=== PATIENT | male | born 1965 | race Caucasian/White ===

== ENCOUNTER → 2018-04-01 | Outpatient (CLI) | payer MEDICARE, MEDICAID ==
[~2018-04-01] MED LIST: ALBU18HF INH; AMIT150T PO; AMLO10TA6 PO; ASPI-496 PO; CARV-39 PO; CLON1TAB PO; FURO20TA3 PO; GABA300C10 PO; GABA600T2 PO; HYDR25TA6 PO; HYDR50TA13 PO; INSU100I13 SC; INSU100V12 SQ; LAMO100T5 PO; LAMO100T63 PO; LISI-467 PO; MINO2.5T PO; MIRT15TA PO; NIAC500T10 PO; NITR0.4T28 SL; OLAN10TA3 PO; OXYC-302 PO; QUET400T PO; SITA25TA PO; TEMA15CA6 PO; VALS320T2 PO; ZOLP10TA5 PO
[2018-04-01 11:42] LABS: BASOPHILS # (AUTO) 0.04 x10^3/uL (0-0.1); BASOPHILS % (AUTO) 1 % (0-1); EOSINOPHILS # (AUTO) 0.19 x10^3/uL (0-0.4); EOSINOPHILS % (AUTO) 3 % (1-7); LYMPHOCYTES # (AUTO) 1.15 x10^3/uL (1-3.4); LYMPHOCYTES % (AUTO) 16 % (22-44); MD NO; MEAN CORPUSCULAR HEMOGLOBIN 32.4 pg (27.5-34.5); MEAN CORPUSCULAR HGB CONC 33.9 g/dL (33.2-36.2); MEAN CORPUSCULAR VOLUME 95.5 fL (81-97); MEAN PLATELET VOLUME 6.9 fL (7.4-10.4); MONOCYTES # (AUTO) 0.33 x10^3/uL (0.2-0.8); MONOCYTES % (AUTO) 5 % (2-9); NEUTROPHILS # (AUTO) 5.29 x10^3/uL (1.8-6.8); NEUTROPHILS % (AUTO) 76 % (42-75); PLATELET COUNT 466 x10^3/uL (130-400); RED BLOOD COUNT 4.18 x10^6/uL (4.38-5.82); RED CELL DISTRIBUTION WIDTH 15.5 % (9.4-14.8)
[2018-04-01 11:44] LABS: MICROSCOPIC AUTO
[2018-04-01 11:46] LABS: INTERNATIONAL NORMALIZED RATIO 0.96 (0.93-1.1); PROTHROMBIN TIME 9.9 Seconds (9.6-11.5)
[2018-04-01 11:48] LABS: CULTURE INDICATED? NO
[2018-04-01 11:49] LABS: ALBUMIN 3.8 g/dL (3.4-5.0); ANION GAP 5 mmol/L (5-15); CALCIUM 8.8 mg/dL (8.5-10.1); CHLORIDE 111 mmol/L (98-107)
[2018-04-01 11:52] LABS: ALANINE AMINOTRANSFERASE 37 U/L (12-78); ALKALINE PHOSPHATASE 117 U/L (45-117); BILIRUBIN,TOTAL 0.4 mg/dL (0.2-1.0); CREATININE 1.26 mg/dL (0.7-1.3); TOTAL PROTEIN 7.2 g/dL (6.4-8.2)
[2018-04-01 14:33] LABS: HEMOGLOBIN A1C 9.6 % (4.2-6.3)
== END | disposition home or self-care (01) ==
LOC: STAR 10:14
PROVIDERS: ATTEND Orthopaedic Surgery
DX: Z01.818 Encounter for other preprocedural examination (principal); M17.11 Unilateral primary osteoarthritis, right knee; M25.561 Pain in right knee; I51.7 Cardiomegaly; I49.8 Other specified cardiac arrhythmias
CPT/HCPCS: 36415; 80053; 81001; 83036; 85025; 85610; 85730; 87081; 87806; 93005; G0475

== ENCOUNTER 2018-04-08 06:43 | Observation (INO) | payer MEDICARE, MEDICAID ==
[~2018-04-08] VITALS: Ht 185.4 cm; Wt 116.4 kg
[2018-04-08] MEDS ORDERED: KETOROLAC 60 MG/2 ML ONE ×2 (07:04→07:27)
[2018-04-08] MEDS ORDERED: EPINEPHRINE 1 MG/ML, 1ML ONE ×2 (07:05→07:28)
[2018-04-08] MEDS ORDERED: ROPIvacaine/PF 0.2%, 20 ML ONE ×2 (07:05→07:28)
[2018-04-08] MEDS ORDERED: TRANEXAMIC ACID 100 MG/ML, 10ML ONE ×8 (07:05→07:28)
[2018-04-08] MEDS ORDERED: LACTATED RINGERS 1,000 ML IV SCH (07:08)
[2018-04-08] MEDS ORDERED: MIDAZOLAM 1 MG/ML, 2ML ONE (07:13)
[2018-04-08] MEDS ORDERED: FENTANYL PF 250 MCG/5ML ONE (07:13)
[2018-04-08] MEDS ORDERED: VANCOMYCIN 1,000 MG ONE (07:28)
[2018-04-08] MEDS ORDERED: ACETAMINOPHEN 500 MG TABLET PO ONE (07:30)
[2018-04-08] MEDS ORDERED: GABAPENTIN 300 MG CAPSULE PO ONE (07:30)
[2018-04-08] MEDS ORDERED: DEXTROSE 50%, 50ML SYRINGE ONE (07:49)
[2018-04-08 07:57] VITALS: BP 167/93
[2018-04-08] MEDS ORDERED: DEXTROSE 50%, 50ML SYRINGE IVPush ONE (08:00)
[2018-04-08] MEDS ORDERED: ONDANSETRON 4 MG TABLET PO PRN (08:30)
[2018-04-08] MEDS ORDERED: PROMETHAZINE 25 MG/ML, 1ML IM PRN (08:30)
[2018-04-08] MEDS ORDERED: PROMETHAZINE 12.5 MG SUPP PR PRN (08:30)
[2018-04-08] MEDS ORDERED: ONDANSETRON 2MG/ML, 2ML IV PRN ×2 (08:30→09:30)
[2018-04-08] MEDS ORDERED: ALUMINUM/MAG/SIMETHICONE 30 ML UDC PO PRN (08:30)
[2018-04-08] MEDS ORDERED: ACETAMINOPHEN 650 MG/20.3 ML UDC PO PRN (08:30)
[2018-04-08] MEDS ORDERED: TRANEXAMIC ACID 1,000 MG in SODIUM CHLORIDE 0.9% 100 ML IVPB ONE (08:30)
[2018-04-08] MEDS ORDERED: DIPHENHYDRAMINE 25 MG CAPSULE PO PRN (08:30)
[2018-04-08] MEDS ORDERED: SENNA/DOCUSATE TABLET PO PRN (08:30)
[2018-04-08] MEDS ORDERED: MAGNESIUM HYDROXIDE 8%, 30ML UDC PO PRN (08:30)
[2018-04-08] MEDS ORDERED: PHENYLEPHRINE 10 MG/ML ONE (09:00)
[2018-04-08] MEDS: DOCUSATE 100 MG CAPSULE PO SCH ×2 (09:00→21:00)
[2018-04-08] MEDS ORDERED: ONDANSETRON ODT 8 MG PO PRN (09:30)
[2018-04-08] MEDS ORDERED: MORPHINE SULFATE 4 MG/ML, 1ML IVPush PRN (09:30)
[2018-04-08] MEDS ORDERED: DIAZEPAM 5 MG/ML, 2ML IVPush PRN (09:30)
[2018-04-08] MEDS ORDERED: FENTANYL PF 100 MCG/2ML IV PRN (09:30)
[2018-04-08] MEDS ORDERED: HYDROmorphone 1 MG/ML, 1ML IV PRN (09:30)
[2018-04-08] MEDS ORDERED: ACETAMINOPHEN 325 MG TABLET PO PRN (09:30)
[2018-04-08] MEDS ORDERED: OXYcodone 5 MG/5 ML ORAL.SOL UDC PO PRN (09:30)
[2018-04-08] MEDS ORDERED: MEPERIDINE/PF 25MG/0.5ML IVPush PRN (09:30)
[2018-04-08] MEDS ORDERED: CEFAZOLIN 1,000 MG ONE (09:33)
[2018-04-08] MEDS ORDERED: PROPOFOL 10 MG/ML, 20ML ONE (09:33)
[2018-04-08] MEDS ORDERED: DEXAMETHASONE 4 MG/ML, 1ML ONE (09:33)
[2018-04-08] MEDS ORDERED: ONDANSETRON 2MG/ML, 2ML ONE (09:33)
[2018-04-08] MEDS: INSULIN REGULAR 100 UNITS/ML, 3ML VIAL SQ-INSULIN SCH ×3 (11:00→21:00)
[2018-04-08] MEDS ORDERED: OXYcodone 5 MG/5 ML ORAL.SOL UDC ONE (11:06)
[2018-04-08] MEDS ORDERED: HYDROmorphone 2 MG/ML, 1ML ONE ×3 (11:11→16:57)
[2018-04-08 12:20] VITALS: BP 136/83
[2018-04-08] MEDS: HYDROmorphone 1 MG/ML, 1ML IV PRN ×2 (13:53→17:02)
[2018-04-08] MEDS: NS + 20MEQ KCL 1,000 ML IV SCH ×2 (13:53→22:22)
[2018-04-08] MEDS ORDERED: TEMAZEPAM 15 MG CAPSULE PO PRN (14:30)
[2018-04-08] MEDS: TAMSULOSIN 0.4 MG CAP.ER.24H PO SCH (15:59)
[2018-04-08] MEDS: CEFAZOLIN PMX 1GM/50ML 50 ML IVPB SCH (16:10)
[2018-04-08] MEDS ORDERED: DEXTROSE 4 GM TAB.CHEW PO PRN (16:30)
[2018-04-08] MEDS ORDERED: DEXTROSE 50%, 50ML SYRINGE IVPush PRN (16:30)
[2018-04-08] MEDS ORDERED: GLUCAGON 1 MG IM PRN (16:30)
[2018-04-08] MEDS: ASPIRIN 81 MG TABLET EC PO SCH (17:03)
[2018-04-08] MEDS: OXYcodone IR 5MG TABLET PO PRN (20:05)
[2018-04-08 20:19] VITALS: BP 130/76
[2018-04-08] MEDS ORDERED: AMITRIPTYLINE 50 MG TABLET PO SCH (21:00)
[2018-04-08] MEDS ORDERED: MIRTAZAPINE 15 MG TABLET PO SCH (21:00)
[2018-04-08] MEDS: SODIUM CHLORIDE FLUSH 10ML SYR IVF SCH (21:00)
[2018-04-09] MEDS: CEFAZOLIN PMX 1GM/50ML 50 ML IVPB SCH (00:14)
[2018-04-09] MEDS: OXYcodone IR 5MG TABLET PO PRN ×2 (00:14→04:50)
[2018-04-09 00:30] VITALS: BP 124/78
[2018-04-09 04:03] VITALS: BP 142/81
[2018-04-09] MEDS: ASPIRIN 81 MG TABLET EC PO SCH (04:50)
[2018-04-09] MEDS: INSULIN REGULAR 100 UNITS/ML, 3ML VIAL SQ-INSULIN SCH (07:00)
[2018-04-09] MEDS ORDERED: D5%-0.45% NACL 500 ML IV ONE (07:00)
[2018-04-09 07:25] VITALS: BP 131/65
[2018-04-09] MEDS: NS + 20MEQ KCL 1,000 ML IV SCH (08:22)
[2018-04-09] MEDS: TAMSULOSIN 0.4 MG CAP.ER.24H PO SCH (08:34)
[2018-04-09] MEDS: DOCUSATE 100 MG CAPSULE PO SCH (08:34)
[2018-04-09] MEDS ORDERED: ASPI-515 PO (08:35)
[2018-04-09] MEDS: SODIUM CHLORIDE FLUSH 10ML SYR IVF SCH (08:35)
[2018-04-09] MEDS ORDERED: ONDA4TAB10 PO (08:36)
[2018-04-09] MEDS ORDERED: DOCU-131 PO (08:37)
[2018-04-09] MEDS ORDERED: CELE200C PO (08:38)
[2018-04-09] MEDS ORDERED: TRAM50TA2 PO (08:39)
[2018-04-09] MEDS ORDERED: OXYC5TAB3 PO (08:40)
[2018-04-09] MEDS ORDERED: LAMOTRIGINE 100 MG TABLET PO SCH (09:00)
[2018-04-09] MEDS ORDERED: OLANZAPINE 10 MG TABLET PO SCH (09:00)
[2018-04-09 09:54] VITALS: BP 149/75
[2018-04-09] MEDS ORDERED: KETOROLAC 30 MG/1 ML IV SCH (15:00)
== END 2018-04-09 11:25 | disposition home or self-care (01) ==
LOC: OUT 06:43 → UNDOADMIN 08:36 → ORIP 08:36 → 4NOR 12:11 → DCLOUNGE 04-09 11:07
PROVIDERS: ADMIT Orthopaedic Surgery; ATTEND Orthopaedic Surgery
DX: M17.11 Unilateral primary osteoarthritis, right knee (principal); M23.201 Derangement of unspecified lateral meniscus due to old tear or injury, left knee; Z79.82 Long term (current) use of aspirin; Z79.899 Other long term (current) drug therapy
CPT/HCPCS: 27477; 36415; 73560; 82962; 85014; 85018; 96365; 96366; 96375; 96376; 97110; 97161; C1713; C1776; G0378; J0171; J0690; J1170; J1885; J2250; J2370; J2405; J2704; J2795; J3010; J3480; J7120; 96374; J1100; J3370